=== PATIENT | male | born 1955 | race Caucasian/White ===

== ENCOUNTER 2024-10-15 12:04 | Outpatient (CLI) | payer MEDICARE, SELFPAY ==
--- NOTE | 2024-10-15 12:11 | MR_ITS ---
WS: [id number] MRI HEAD WITH CONTRAST WITH ATTENTION TO THE INTERNAL AUDITORY CANALS TECHNIQUE: Sagittal T1, T2 axial, T2 axial flair, axial susceptibility weighted imaging, axial diffusion weighted images, and coronal T2 images were obtained. Pre and post T1 axial and post T1 coronal images. ADC and FSPGR images. Post gadolinium images with attention to the internal auditory canals. Axial fiesta imaging. CLINICAL INFORMATION: MIXED CONDUCTIVE SENSORINEURAL HEARING LOSS COMPARISON: None. 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 RIGHT IAC is normal in appearance. Normal trigeminal nerve root entry zones. No evidence of restricted diffusion to suggest acute ischemia. Moderate small vessel changes. Moderate parenchymal volume loss. Normal posterior fossa. Normal vascular flow voids at the skull base. No extra-axial fluid collections. Paranasal sinuses and mastoid air cells are well aerated. No hemosiderin on the susceptibly weighted images. Incidental venous angioma RIGHT posterior temporal lobe. MR/MR iac's wo/w con* [id number] IMPRESSION: Enhancing lesion in the LEFT IAC compatible with a small vestibular schwannom a measuring 6.2 x 2.7 mm. Recommend ENT consultation.
[2024-10-15] MEDS: gadobenate dimeglumine 20 mL vial 14 ML IV (12:54)
== END 2024-10-15 12:05 | disposition home or self-care (01) ==
LOC: RAD 12:09
PROVIDERS: PCP Family Medicine; Visit Provider Otolaryngology
DX: H90.A32 Mixed conductive and sensorineural hearing loss, unilateral, left ear with restricted hearing on the contralateral side (principal); H90.A21 Sensorineural hearing loss, unilateral, right ear, with restricted hearing on the contralateral side; H93.19 Tinnitus, unspecified ear; D33.3 Benign neoplasm of cranial nerves
CPT/HCPCS: 70553